=== PATIENT | female | born 1970 | race African-American/Black ===

== ENCOUNTER 2017-04-04 20:25 | Emergency (ER) | payer OTHER ==
[~2017-04-04] VITALS: Ht 165.1 cm; Wt 85.0 kg
[~2017-04-04 20:25] MED LIST: ALBU6.7H INH; AMBI10TA PO; DIPH2%T PO; GABA400 PO; IBUP600T26 PO; PROC1TAB8 PO; TAB-TAB PO
[2017-04-04 20:27] VITALS: BP 166/96; PULSE 85; RESP 20; TEMP 98.5; O2SAT 96
--- NOTE | 2017-04-04 20:32 | PD ---
Physical Exam Date Seen by Provider: April 04, 2017 Time Seen by Provider: 20:30 Narrative 46 yo female here for cough, congestion and palpitations. Per patient cough ongoing for some days. Today she started feeling like her heart is making palpitations. has pounding headache. Congestion. No sick contacts. Some abdominal pain as well with the cough. Vitals sign stable. Patient awaiting bed placement. Data Data Last Documented VS Vital Signs Date Time Temp Pulse Resp B/P Pulse Ox O2 Delivery O2 Flow Rate FiO2 04/04/17 20:27 98.5 85 20 166/96 96 Room Air [facility] Medical Record Reviewed: Yes Supervised Visit with GURDEEP: No Shaquille Santoro April 04, 2017 20:31
== END 2017-04-04 20:39 | disposition left against medical advice (07) ==
LOC: NED 20:25
DX: R05 Cough (principal)
CPT/HCPCS: 99281

== ENCOUNTER 2018-04-07 06:56 | Emergency (ER) | payer OTHER, MEDICAID ==
[~2018-04-07] VITALS: Ht 165.1 cm; Wt 80.0 kg
[2018-04-07 07:10] VITALS: BP 172/92; PULSE 78; RESP 16; TEMP 97.5; O2SAT 100
--- NOTE | 2018-04-07 07:21 | PD ---
HPI Chief Complaint: Injury Time Seen by Provider: 07:19 Travel History International Travel<30 days: No Contact w/Intl Traveler<30days: No Traveled to known affect area: No History of Present Illness HPI Patient comes in complaining of a accident in the tripping over a stump, now complaining of left great toe pain, worse by movement, 8 out of 10, nonradiating , sharp. Patient denies any alleviating factors, aggravated by movement. Patient denies any associated factors such as LOC, any blunt head trauma, Allergy to Tylenol, Sudafed, dm, doxylamine Past medical history significant for migraine, hypercholesterolemia, hypertension, gastric bypass 2011, hysterectomy, anxiety, anemia, PFSH Past Medical History Hx Anticoagulant Therapy: No Anemia: Yes Arthritis: Yes (LEGS AND HANDS) Asthma: No Autoimmune Disease: No Blood Disorders: No Anxiety: Yes Depression: No Heart Rhythm Problems: No Cancer: Yes (PRIOR UTERUS) Cardiovascular Problems: Yes High Cholesterol: Yes Chemotherapy: No Chest Pain: Yes (08/26) Congestive Heart Failure: No COPD: No Cerebrovascular Accident: No Diabetes: No Diminished Hearing: No Endocrine: No Gastrointestinal Disorders: Yes GERD: No Genitourinary: No Headaches: Yes Hiatal Hernia: No Hypertension: Yes Immune Disorder: No Implanted Vascular Access Dvce: No Kidney Stones: No Musculoskeletal: No Neurologic: Yes Psychiatric: No Reproductive: No Respiratory: Yes Immunizations Current: Yes Migraines: Yes Myocardial Infarction: No Radiation Therapy: No Renal Failure: No Seizures: No Sickle Cell Disease: No Sleep Apnea: No Thyroid Disease: No Ulcer: No PNEUMOCCOCAL Vaccine (Year): 2 ?: Not Menopausal: Yes : 2 Para: 2 Tubal Ligation: Yes Past Surgical History Abdominal Surgery: Yes (GASTRIC BYPASS APRIL 2012) AICD: No Arteriovenous Shunt: No Cardiac Surgery: No Section: Yes (X2) Ear Surgery: No Endocrine Surgery: No Eye Surgery: No Genitourinary Surgery: No Hysterectomy: Yes Insulin Pump: No Joint Replacement: No Neurologic Surgery: No Oral Surgery: No Pacemaker: No Thoracic Surgery: No Other Surgery: Yes Social History Alcohol Use: No Tobacco Use: No Substance Use: No Allergies-Medications (Allergen,Severity, Reaction): Coded Allergies: acetaminophen (Unverified Allergy, Severe, SWELLING, HIVES, 06/20/17) dextromethorphan (Unverified Allergy, Severe, SWELLING, HIVES, 06/20/17) doxylamine (Unverified Allergy, Severe, SWELLING, HIVES, 06/20/17) pseudoephedrine (Unverified Allergy, Severe, SWELLING, HIVES, 06/20/17) Reported Meds & Prescriptions Reported Meds & Active Scripts Active Ultram (Tramadol HCl) 50 Mg Tab 50 Mg PO Q6H PRN Ibuprofen 600 Mg Tab 600 Mg PO Q8H PRN Benadryl (Diphenhydramine HCl) 25 Mg Cap 25 Mg PO Q8H PRN Compazine 10 Mg Tab (Prochlorperazine Maleate) 10 Mg Tab 10 Mg PO Q8HR PRN Proventil Hfa (Albuterol Sulfate) 6.7 Gm Aero 2 Puff INH Q4H PRN * SHAKE WELL BEFORE USE * Reported Multivitamin (Multivitamins) 1 Tab Tab 1 Tab PO DAILY Neurontin (Gabapentin) 400 Mg Cap 400 Mg PO BID Ambien (Zolpidem Tartrate) 10 Mg Tab 10 Mg PO HS Review of Systems General / Constitutional: No: Fever Eyes: No: Visual changes HENT: No: Headaches Cardiovascular: No: Chest Pain or Discomfort Respiratory: No: Shortness of Breath Gastrointestinal: No: Abdominal Pain Genitourinary: No: Dysuria Musculoskeletal: Positive: Pain Skin: No Rash Neurologic: No: Weakness Psychiatric: No: Depression Endocrine: No: Polydipsia Hematologic/Lymphatic: No: Easy Bruising Physical Exam Narrative GENERAL: SKIN: Warm and dry. HEAD: Atraumatic. Normocephalic. EYES: Pupils equal and round. No scleral icterus. No injection or drainage. ENT: No nasal bleeding or discharge. Mucous membranes pink and moist. NECK: Trachea midline. No JVD. CARDIOVASCULAR: Regular rate and rhythm. RESPIRATORY: No accessory muscle use. Clear to auscultation. Breath sounds equal bilaterally. GASTROINTESTINAL: Abdomen soft, non-tender, nondistended. MUSCULOSKELETAL: Extremities without clubbing, cyanosis, or edema. No obvious deformities. However tender to palpation over the left first great toe at its base but without crepitus, good pedal pulses warm to touch NEUROLOGICAL: Awake and alert. No obvious cranial nerve deficits. Motor grossly within normal limits. Five out of 5 muscle strength in the arms and legs. Normal speech. PSYCHIATRIC: Appropriate mood and affect; insight and judgment normal. Data Data Last Documented VS Orders Orders Foot, Complete ([id number]) (04/07/18 ) Tramadol (Ultram) (04/07/18 08:30) Shoe Post Op (04/07/18 ) Ketorolac Inj (Toradol Inj) (04/07/18 10:30) Ed Discharge Order (04/07/18 10:19) Shoe Cast (04/07/18 ) MDM Medical Decision Making Medical Screen Exam Complete: Yes Emergency Medical Condition: Yes Medical Record Reviewed: Yes Differential Diagnosis Toe fracture versus dislocation versus subluxation versus contusion Narrative Course Foot x-ray was interpreted by radiologist as no evidence of any fracture. The patient was treated symptomatically with rhina taping and provided a postop shoe due to the tremendous amount of pain that the patient was experiencing. Diagnosis Primary Impression: Left great toe contusion Patient Instructions: Contusion in Adults (ED), General Instructions Scripts Tramadol (Ultram) 50 Mg Tab 50 MG PO Q6H Y for PAIN, #12 TAB 0 Refills Prov: Soto Enciso MD 04/07/18 Disposition: 01 DISCHARGE HOME Condition: Stable Soto Enciso MD Apr 07, 2018 07:21
--- NOTE | 2018-04-07 08:06 | RADRPT ---
EXAM DATE: 04/07/2018 7:54 AM EDT AGE/SEX: 47 years / Female INDICATIONS: Patient complains of left foot pain status post stubbing toes. Majority of pain in grea t toe, pain throughout left foot. CLINICAL DATA: This is the patient's initial encounter. Patient reports that signs and symptoms have been present for 1 day and indicates a pain score of 8/10. MEDICAL/SURGICAL HISTORY: None. None. COMPARISON: No prior [facility] exams available for comparison. FINDINGS: Bony structures are intact and in normal alignment. Osseous density is normal. Soft tissues are unre markable. No radiopaque foreign bodies seen. CONCLUSION: No evidence of fracture. Electronically signed by: Sue Schmidt MD 04/07/2018 8:05 AM EDT
[2018-04-07] MEDS ORDERED: traMADol HCL 50 MG TAB PO ONE (08:30)
[2018-04-07] MEDS ORDERED: TRAM50 PO (10:23)
[2018-04-07] MEDS ORDERED: KETOROLAC TROMETHAMINE 60 MG/2 ML (IM) VIAL IM ONE (10:30)
== END 2018-04-07 10:48 | disposition home or self-care (01) ==
LOC: NEPE 06:56
DX: S90.112A Contusion of left great toe without damage to nail, initial encounter (principal); W22.8XXA Striking against or struck by other objects, initial encounter
CPT/HCPCS: 73630; 96372; 99283; J1885; L3260